=== PATIENT | male | born 1935 | race Caucasian/White ===

== ENCOUNTER 2017-06-28 15:31 | Observation (INO) | payer OTHER ==
[~2017-06-28] VITALS: Ht 165.1 cm; Wt 60.0 kg
[~2017-06-28 15:31] MED LIST: COUMADIN1 MG PO; HYDROCODON-ACE1 EAC7; OXYCODONE HCL5 MG; WARFARIN SODIUM5 MG PO; ZITHROMAX Z-PA250 MG PO
[2017-06-28 16:33] LABS: HEMATOCRIT 44.1 % (38.0-50.0); HEMOGLOBIN 14.8 G/DL (12.5-16.6); MCH 33.3 PG (29.0-34.0); MCHC 33.6 G/DL (30.0-36.0); MCV 99.1 FL (86-99); PLATELET COUNT 269 K/uL (156-360); RBC DIS.WIDTH-CV 12.7 % (11.8-14.6); RBC DIS.WIDTH-SD 46.8 % (39-53); RED BLOOD COUNT 4.45 M/uL (4.00-5.50); WHITE BLOOD COUNT 7.4 K/uL (4.1-10.2)
[2017-06-28 16:41] LABS: ALBUMIN 3.8 g/dL (3.2-4.8)
[2017-06-28 16:42] LABS: CHLORIDE 106 mEq/L (99-109); POTASSIUM 4.4 mEq/L (3.7-5.4); SODIUM 140 mEq/L (136-147)
[2017-06-28 16:44] LABS: GLUCOSE 93 mg/dL (70-99); TOTAL PROTEIN 6.4 g/dL (6.4-8.3)
[2017-06-28 16:46] LABS: TOTAL BILIRUBIN 0.6 mg/dL (0.0-1.0)
[2017-06-28 16:47] LABS: APPEARANCE CLOUDY ((CLEAR)); BILIRUBIN NEGATIVE; BLOOD NEGATIVE; COLOR YELLOW ((YELLOW)); GLUCOSE (STRIP) NEGATIVE; KETONES NEGATIVE; LEUKOCYTES NEGATIVE; NITRITE NEGATIVE; PROTEIN (STRIP) NEGATIVE; SPECIFIC GRAVITY 1.018 (1.000-1.030); UROBILINOGEN 0.2 MG/DL (0.2-1.0)
[2017-06-28 16:47] LABS: ALKALINE PHOSPHATASE 63 IU/L (3-129)
[2017-06-28 16:48] LABS: CREATININE 0.8 mg/dL (0.6-1.3); GFR ESTIMATE (CALCULATED) > 59 mL/min/ (58.99-99999)
[2017-06-28 16:49] LABS: AST (GOT) 22 IU/L (2-34); UREA NITROGEN (BUN) 14 mg/dL (9-23)
[2017-06-28 16:51] LABS: ALT (GPT) 18 IU/L (3-49); LIPASE 20 U/L (1.0-51.0)
[2017-06-28 16:53] LABS: TROP-I INTERPRETATION NEGATIVE; TROPONIN-I 0.03 ng/mL (0.0-0.30)
[2017-06-28 16:56] LABS: BACTERIA NONE SEEN /HPF; EPITHELIAL CELLS RARE /HPF; MUCUS TRACE /LPF; RED BLOOD CELLS 0-5 /HPF (0-5); UCUL ADDED? NO; WHITE BLOOD CELLS 0-5 /HPF (0-5)
[2017-06-28] MEDS ORDERED: PERCOCET 10/1 TABLET PO (18:53)
[2017-06-28] MEDS ORDERED: CELEBREX200 MG PO (18:53)
[2017-06-28] MEDS ORDERED: DESYREL100 MG PO (18:54)
[2017-06-28] MEDS ORDERED: ALENDRONATE SOD35 MG PO (18:54)
[2017-06-28] MEDS ORDERED: FEOSOL325 MG PO (18:54)
[2017-06-28] MEDS ORDERED: OYSCO-500500 MG PO (18:56)
[2017-06-28] MEDS ORDERED: B-COMPLEX-VITA1 EACH PO (18:56)
[2017-06-28] MEDS ORDERED: VITAMIN D32000 UNI1 PO (18:57)
[2017-06-28] MEDS ORDERED: ICY HOT TP (18:57)
[2017-06-28] MEDS ORDERED: PEPCID COMPLET1 EACH PO (18:59)
[2017-06-28] MEDS ORDERED: GAVISCON TABLE1 EACH PO (19:01)
[2017-06-28 21:11] VITALS: BP 119/75
[2017-06-28 23:39] LABS: TROP-I INTERPRETATION NEGATIVE; TROPONIN-I < 0.01 ng/mL (0.0-0.30)
[2017-06-28 23:45] VITALS: BP 111/66
[2017-06-29 04:07] VITALS: BP 106/56
[2017-06-29 06:31] LABS: TROP-I INTERPRETATION NEGATIVE; TROPONIN-I < 0.01 ng/mL (0.0-0.30)
[2017-06-29 07:23] VITALS: BP 126/60
[2017-06-29 15:31] VITALS: BP 106/60
[2017-06-29 20:00] VITALS: BP 103/55
[2017-06-29 23:56] VITALS: BP 108/56
[2017-06-30 04:04] VITALS: BP 108/63
[2017-06-30 07:54] VITALS: BP 128/70
[2017-06-30] MEDS ORDERED: PANTOPRAZOLE SO40 MG PO (07:55)
== END 2017-06-30 11:27 | disposition home or self-care (01) ==
LOC: EME 15:31 → EDOF 20:04 → 5WEST 20:04 → ENRESERV 20:08 → 5WEST 20:54 → ENPENDDIS 06-30 08:07 → 5WEST 06-30 11:27
PROVIDERS: Nurse Practitioner Family; Physician Assistant Medical
DX: R10.13 Epigastric pain (principal); K29.70 Gastritis, unspecified, without bleeding; K44.9 Diaphragmatic hernia without obstruction or gangrene; K21.9 Gastro-esophageal reflux disease without esophagitis; G89.29 Other chronic pain; M51.16 Intervertebral disc disorders with radiculopathy, lumbar region; M54.5 Low back pain; M19.90 Unspecified osteoarthritis, unspecified site; Z96.659 Presence of unspecified artificial knee joint; Z86.73 Personal history of transient ischemic attack (TIA), and cerebral infarction without residual deficits; Z82.49 Family history of ischemic heart disease and other diseases of the circulatory system; Z86.711 Personal history of pulmonary embolism; K86.9 Disease of pancreas, unspecified; Z79.01 Long term (current) use of anticoagulants
CPT/HCPCS: 71046; 71275; 74177; 76705; 80053; 81003; 83605; 83690; 84484; 85027; 85379; 93005; 99281; 99284; G0378; J1644; J2405; J3010; J7030; S0028